=== PATIENT | female | born 1960 | race Caucasian/White ===

== ENCOUNTER 2016-10-15 13:55 | Day surgery (SDC) | payer OTHER ==
[~2016-10-15] VITALS: Ht 157.5 cm; Wt 50.0 kg
[~2016-10-15 13:55] MED LIST: CEPH500 PO; CeFAZolin 1 GM/DEXTROSE 50 ML IV ONE; HYDR1LIQ5 PO; HYDR2 PO; LORazepam 2 MG/ML VIAL IVP ONE; ONDA4 PO; SODIUM CHLORIDE 0.9% 1,000 ML IV ONE
[2016-10-15] MEDS ORDERED: FentaNYL CITRATE-PF 100 MCG/2 ML VIAL ONE (14:55)
[2016-10-15] MEDS ORDERED: HEPARIN SODIUM 1000 UNITS/NS 500 ML ONE (14:55)
[2016-10-15] MEDS ORDERED: HEPARIN SODIUM,PORCINE 1,000 UNITS/ML 10 ML VIAL ONE (14:55)
[2016-10-15] MEDS ORDERED: MIDAZOLAM HCL 2 MG/2 ML VIAL ONE (14:55)
[2016-10-15] MEDS ORDERED: LIDOCAINE HCL 1%/EPI 1:200,000/PF 10 ML VIAL ONE (14:55)
[2016-10-15] MEDS ORDERED: LIDOCAINE HCL/PF 1% 30 ML VIAL ONE (14:57)
[2016-10-15] MEDS ORDERED: FentaNYL CITRATE-PF 100 MCG/2 ML VIAL IVP ONE (15:21)
[2016-10-15] MEDS ORDERED: MIDAZOLAM HCL 2 MG/2 ML VIAL IVP ONE (15:21)
[2016-10-15] MEDS ORDERED: 0.9% SODIUM CHLORIDE 10 ML SYRINGE IVP PRN (18:15)
== END 2016-10-15 18:00 | disposition home or self-care (01) ==
LOC: SDS 13:55
PROVIDERS: ATTEND Radiology Diagnostic Radiology
DX: C50.912 Malignant neoplasm of unspecified site of left female breast (principal)
CPT/HCPCS: 36561; 76937; A4301; C1769; J0690; J1644; J2250; J3010; J3490; J7030; 36245